=== PATIENT | male | born 2000 | race Caucasian/White ===

== ENCOUNTER 2023-08-14 19:18 | Emergency (ER) | payer BC, SELFPAY ==
--- NOTE | 2023-08-14 19:31 | XR_ITS ---
PROCEDURE INFORMATION: Exam: XR Left Knee Exam date and time: 08/14/2023 7:36 PM Age: 23 years old Clinical indication: Other: Patellar dislocation; Additional info: Patellar dislocation, rule out fracture after fall TECHNIQUE: Imaging protocol: Radiologic exam of the left knee. Views: 3 views. COMPARISON: No relevant prior studies available. FINDINGS: Bones/joints: There is edema along the lateral aspect of the knee. Lipohemarthrosis noted, implying an intra-articular fracture. There may be a nondisplaced fracture along the medial aspect of the patella. Soft tissues: Normal. IMPRESSION: Lipohemarthrosis implies an intra-articular fracture. There may be a nondisplaced fracture along the medial aspect of the patella which could be confirmed with CT. No additional acute bony injury is appreciated.
[2023-08-14 19:32] VITALS: BP 179/101; PULSE 118; RESP 19; TEMP 36.1; O2SAT 97; BMI 17.0
[2023-08-14] MEDS: ACETAMINOPHEN 500MG TAB 1000 MG PO (19:40)
[2023-08-14] MEDS: IBUPROFEN 600 MG TABLET PO (19:41)
--- NOTE | 2023-08-14 19:55 | ED_ITS ---
Discharge Plan Disposition Patient Disposition: Home, Self-Care Prescriptions Prescriptions: No Action No Known Home Medications Referrals Follow up/Referrals: Diego Saavedra DO [Staff Physician] - See instructions Provider,Referral, [Primary Care Provider] - See instructions Activity Restrictions/Add. Instructions Additional Instructions/Restrictions: Take a daily 81 mg aspirin. Take Tylenol 1000 mg every 6 hours (4 times daily) and ibuprofen 400 mg every 6 hours (4 times daily) as needed with food and water to prevent GI upset and kidney damage. Follow-up with Dr. Saavedra regarding this visit to the emergency department (orthopedic doctor). Wear knee immobilizer until that time. Call your family doctor to establish care for this visit to the emergency department and schedule follow-up within 48 hours to ensure improvement. If you have any worsening of your condition or any other concerning signs or symptoms, return to the emergency department or your primary care doctor for further evaluation. Clinical Impressions Clinical Impression: Closed dislocation of left patella Discharge ED Provider: Carlito Hendrix General Adult [facility] General Chief complaint: Extremity Injury, Lower Stated complaint: AO fall 08/13, left knee pain Time Seen by Provider: 08/14/23 19:26 Mode of Arrival: Family Vehicle Source of Information: Patient Limitations: No Limitations Description of Symptoms (Recalled from ER Triage Doc. by RN): 23 yo male presents with CC of left knee injury following a fall. Patient reports he was falling when he attempted to avoid landing on a young child and twisted incorrectly. Reports my patella was on the opposite side it is supposed to be on / minimal swelling present at present History of Present Illness HPI narrative: Please note that above description of symptoms, in this electronic medical record under categorization of recalled from ER triage doctor by RN are reflective of an initial nursing assessment, however, is not reflective of my full history and physical exam that was personally taken and clarified. Consequentially, this preceding description of symptoms, which may include the patient's categorized chief complaint in the EMR, do not reflect my personal clinical impression, and the ultimate description of history of present illness and patient stated complaints should be deferred to this section of the note. Unless stated otherwise or congruent with this section of the note, additional signs, symptoms, or incongruence should be interpreted as inaccurate with my clinical impression. Related Data Home Medications Medication Instructions Recorded Confirmed No Known Home Medications 08/14/23 08/14/23 Allergies Allergy/AdvReac Type Severity Reaction Status Date / Time No Known Allergies Allergy Verified 08/14/23 19:38 [facility] Disclaimer: The information contained in this section may have been updated after the patient was seen, as this information can be updated by other users. Social History Smoking Status: Current every day smoker alcohol intake: never current occupational status: employed Travel in the last 8 weeks: None ROS Obtained: Yes All systems reviewed & no additional complaints except as documented Physical Exam General General appearance: alert and in distress (Pain) Head Head exam: atraumatic and normocephalic Eye Eye exam: Present normal appearance, PERRL and EOMI ENT ENT exam: Present mucous membranes moist Neck Neck exam: Present normal inspection, full ROM and trachea midline Respiratory Respiratory exam: Absent respiratory distress, wheezes, stridor, accessory muscle use or prolonged expiratory phase Cardiovascular Cardiovascular exam: Present normal rhythm Abdominal Exam Abdominal exam: Present soft; Absent distention, tenderness, guarding, rebound or rigidity Extremities Exam Extremities exam: Present other (Mild effusion left knee. Patella glides without issue. Patellar tendons and ligaments within normal limits. Knee structurally intact) Neurological Exam Neurological exam: Present alert, oriented X3, CN II-XII intact and normal gait; Absent motor sensory deficit Skin Skin exam: Present warm and dry; Absent diaphoresis or erythema Medical Decision Making Medical Records Medical records reviewed: Yes I reviewed the patient's medical records. Jarod Inquiry Pt receiving controlled substance: No Jarod was queried for this patient: No Vital Signs: 08/14/23 19:32 08/14/23 20:19 Temperature 97.0 F L 97 F L Temperature Source Temporal Artery Scan Oral Pulse Rate 98 H Pulse Rate [Right Brachial] 118 H Respiratory Rate 19 18 Blood Pressure 179/80 H Blood Pressure [Right Arm] 179/101 H Blood Pressure Mean [Right Arm] 127 Blood Pressure Source Automatic Cuff Blood Pressure Source [Right Arm] Automatic Cuff Blood Pressure Position Sitting Blood Pressure Position [Right Arm] Sitting 02 Sat by Pulse Oximetry 97 Oxygen Delivery Method Room Air Room Air Orders (Tests/Meds): ED MEDICATIONS Discontinued Medications Generic Name Dose Route Start Last Admin Trade Name Freq PRN Reason Stop Dose Admin Acetaminophen 1,000 mg 08/14/23 19:31 08/14/23 19:40 Acetaminophen 500mg Tab PO 08/14/23 19:32 1,000 mg ONCE ONE Administration Ibuprofen 600 mg 08/14/23 19:31 08/14/23 19:41 Ibuprofen 600 Mg Tablet PO 08/14/23 19:32 600 mg ONCE ONE Administration ORDERS Category Date Time Status Knee XR left 3 views [XR knee LT 3V] Stat Exams 08/14/23 19:31 Completed Medical Decision Narrative: 23-year-old male no relevant medical history presenting with left knee pain after fall. Patient states he was avoiding a child after tripping and turned, landed on his knee while twisting and felt a pop. Had immediate pain. Looked down and saw that his patella was on the lateral aspect of his left knee. Forcefully reduced patella, but is still having pain. Presents for further evaluation. It is severe, does not radiate, located directly behind the patella. History was obtained via conversation with patient. On arrival, patient hemodynamically stable, alert, oriented x4, appropriate, GCS 15, moving all extremities spontaneously, pupils equal and reactive to light. Full physical exam performed and significant for patient appears to be in mild distress secondary to pain when moving, at rest, patient does not appear to be in any distress. Knee is structurally intact, neurovascularly intact distally with intact pulses symmetrically. Patient does have flexion and extension of his knee and hip, but limited secondary to pain. differential includes dislocation, reduction, fracture, among others. Patient was given Tylenol, Motrin, ice pack for symptomatic management and correction of underlying abnormalities. Workup independently interpreted and significant for no acute bony abnormality of the knee. He does have a significant effusion, But no obvious fracture. See radiology read for full review of final results. Patient was laced in knee immobilizer, recommended they take daily aspirin and follow-up with orthopedics. He is agreeable to this plan. Because patient at baseline without signs or symptoms of clinical dec ompensation, deemed appropriate for discharge. Results were relayed to patient who voiced understanding and were agreeable to outpatient management and follow up. I discussed my clinical impression with patient and answered all questions. At this time, the evidence for any other entities in the differential is insufficient to warrant any further testing or ED observation. This was explained as well. Advisory was given that persistent or worsening symptoms require further evaluation. I confirmed the understanding of this discussion. Critical Care Critical Care Time Critical Care Time: No
[2023-08-14 20:19] VITALS: BP 179/80; PULSE 98; RESP 18; TEMP 36.1; O2SAT 99
== END 2023-08-14 20:21 | disposition home or self-care (01) ==
PROVIDERS: Emergency Provider Emergency Medicine
DX: S83.005A Unspecified dislocation of left patella, initial encounter (principal); M25.562 Pain in left knee; M25.462 Effusion, left knee; X50.1XXA Overexertion from prolonged static or awkward postures, initial encounter
CPT/HCPCS: 73562; 99283

== ENCOUNTER 2023-08-26 11:04 | Outpatient (RCR) | payer BC, SELFPAY | END 2023-08-26 13:00 | disposition home or self-care (01) | LOC: PT 11:04 | PROVIDERS: Visit Provider Orthopaedic Surgery | DX: M25.562 Pain in left knee (principal); S83.095A Other dislocation of left patella, initial encounter | CPT/HCPCS: 97760 ==

== ENCOUNTER 2023-12-17 17:38 | Emergency (ER) | payer BC, SELFPAY ==
--- NOTE | 2023-12-17 17:54 | XR_ITS ---
PROCEDURE INFORMATION: Exam: XR Left Knee Exam date and time: 12/17/2023 5:55 PM Age: 23 years old Clinical indication: Pain; Knee; Left TECHNIQUE: Imaging protocol: Radiologic exam of the left knee. Views: 3 views. COMPARISON: CR XR KNEE LT 3V 08/14/2023 7:36 PM FINDINGS: Bones/joints: Multiple views were obtained. The osseous structures appear intact with no evidence of acute fracture, dislocation, or malalignment. Joint spaces are preserved. No abnormal bone density or destructive lesions are noted. Soft tissues: Soft tissue swelling is observed, and further clinical correlation is advised. IMPRESSION: At the time of imaging, the skeletal radiograph demonstrates no acute osseous abnormalities but does show soft tissue swelling.
[2023-12-17 18:02] VITALS: BP 129/90; PULSE 103; RESP 16; TEMP 36.9; O2SAT 98; BMI 42.5
--- NOTE | 2023-12-17 18:06 | ED_ITS ---
Discharge Plan Disposition Patient Disposition: Home, Self-Care Condition: Good Prescriptions Prescriptions: New ibuprofen [IBU] 800 mg tablet 800 mg PO Q8HP PRN (Reason: Moderate Pain) Qty: 30 0RF Referrals Follow up/Referrals: Diego Saavedra DO [Staff Physician] - See instructions Provider,Referral, [Primary Care Provider] - See instructions Activity Restrictions/Add. Instructions Additional Instructions/Restrictions: Rest the extremity, apply ice for 15 minutes as tolerated three or four times per day, Elevate the extremity as tolerated while you are resting. Take ibuprofen for pain. I sent in a prescription to your pharmacy. Follow up with Dr. Saavedra (orthopedics). I put in a referral but you need to call his office and schedule an appointment. His office phone number will be on this paperwork. Follow up with your regular doctor. GO TO THE ER FOR ANY WORSENING SYMPTOMS Clinical Impressions Clinical Impression: Left knee sprain Stand Alone Forms Stand Alone Forms: Work/School Release Instructions Patient Instructions: How to Use Crutches, DI for Knee Sprain, How to Use a Knee Immobilizer Print Language Print Language: Korean Discharge ED Provider: Tal Roe [facility] General Stated complaint: AO in August Left knee injury Mode of Arrival: Ambulatory Source of Information: Patient Limitations: No Limitations Time Seen by Provider: 12/17/23 18:06 Description of Symptoms (Recalled from Triage Doc. by RN): Reports possibly dislocating his left knee. States that he was dancing when it popped out of place and he put it back in. HEENT Symptoms (Recalled from RN notes): No Resp Symptoms (Recalled from RN notes): No Skin Symptoms (Recalled from RN notes): No MS Symptoms (Recalled from RN notes): Yes Functional Status (Recalled from RN notes): wnl History of Present Illness Provider Complaint: He states that he dislocated his left knee cap back in august. He states that he put it back in place himself then. He states that 2 days ago he was dancing when he fell and hurt that knee again. Since then he has had left knee swelling and instability. He denies any other injury. Related Data Previous Rx's ?Medication ?Instructions ?Recorded ibuprofen 800 mg tablet (IBU) 800 mg PO Q8HP PRN Moderate Pain 12/17/23 #30 tabs Allergies Allergy/AdvReac Type Severity Reaction Status Date / Time No Known Allergies Allergy Verified 09/09/23 14:01 Worker's Comp Is this a Worker's Comp case?: No PFSH [facility] Disclaimer: The information contained in this section may have been updated after the patient was seen, as this information can be updated by other users. Social History Smoking Status: Current every day smoker alcohol intake: never current occupational status: employed Travel in the last 8 weeks: None ROS Obtained: Yes All systems reviewed & no additional complaints except as documented Constitutional Constitutional: Denies chills and Denies fever(s) Eyes Eyes: Denies eye discharge ENT Ears, Nose, Mouth, and Throat: Denies dizziness, Denies otalgia and Denies sore throat Cardiovascular Cardiovascular: Denies chest pain Respiratory Respiratory: Denies shortness of breath, Denies chest congestion, Denies cough, Denies stridor and Denies wheezing Gastrointestinal Gastrointestingal: Denies nausea or vomiting Musculoskeletal Musculoskeletal: Reports as per HPI Integumentary/Breasts Skin/Breast: Denies rash Neurologic Neurologic: Denies dizziness and Denies paresthesias Allergic/Immunologic Allergic/Immunologic: Denies wheezing Physical Exam General General appearance: alert and in no apparent distress Head Head exam: atraumatic, normocephalic and normal inspection Eye Eye exam: Present normal appearance, PERRL and EOMI ENT ENT exam: Present normal exam, normal oropharynx, mucous membranes moist, TM's normal bilaterally and normal external ear exam Neck Neck exam: Present normal inspection, full ROM and trachea midline; Absent meningismus or lymphadenopathy Chest Chest inspection: Present normal inspection and symmetric chest wall rise; Absent tenderness Respiratory Respiratory exam: Present normal lung sounds bilaterally; Absent respiratory distress Cardiovascular Cardiovascular exam: Present regular rate and normal rhythm; Absent JVD Abdominal Exam Abdominal exam: Present soft and normal bowel sounds; Absent distention, tenderness or guarding Extremities Exam Extremities exam: Present normal capillary refill; Absent calf tenderness Expanded Lower Extremity Exam Left: Hip/Pelvis exam: Present normal inspection and full ROM; Absent tenderness, internal rotation, pain on hip/pelvis palpation or hip pain on leg movement Upper leg exam: Present normal inspection; Absent full ROM, tenderness, swelling, abrasion, laceration, ecchymosis, deformity, crepitus, dislocation or erythema Knee exam: Present full ROM, tenderness, swelling, effusion and knee extension intact; Absent abrasion, laceration, ecchymosis, deformity, crepitus, dislocation, erythema, anterior drawer sign, posterior draw sign, pain with valgus, laxity with valgus, pain with varus or laxity with varus Lower leg exam: Present normal inspection, full ROM and Achilles tendon intact; Absent tenderness or Homans' sign Ankle exam: Present normal inspection and full ROM; Absent tenderness Foot/toe exam: Present normal inspection; Absent full ROM or tenderness Neurovascular/Tendon exam: Present normal capillary refill, normal 2-point discrimination and normal fine/light touch; Absent pulse deficit, motor deficit, sensory deficit, tendon deficit, extremity cold to touch or pallor Gait: observed and limited by pain Back Exam Back exam: Present normal inspection; Absent tenderness Neurological Exam Neurological exam: Present alert and oriented X3 Psychiatric Psychiatric exam: Present normal affect and normal mood Skin Skin exam: Present warm, dry, intact and normal color Lymphatic Lymphatic Findings: no adenopathy Medical Decision Making Medical Records Medical records reviewed: No I reviewed the patient's medical records. Jarod Inquiry Pt receiving controlled substance: No Vital Signs: 12/17/23 18:02 Temperature 98.4 F Temperature Source Oral Pulse Rate [Radial] 103 H Respiratory Rate 16 Blood Pressure [Right Arm] 129/90 Blood Pressure Mean [Right Arm] 103 Blood Pressure Source [Right Arm] Automatic Cuff Blood Pressure Position [Right Arm] Sitting 02 Sat by Pulse Oximetry 98 Oxygen Delivery Method Room Air Orders (Tests/Meds): ORDERS Category Date Time Status Knee XR left 3 views [XR knee LT 3V] Stat Exams 12/17/23 17:54 Ordered Radiology Data #1: Image(s): Knee Image Reviewed: Yes I reviewed the patient's radiology image and Yes I have reviewed radiologist's interpretation Preliminary Findings: No Fracture Seen Accession No. : [id number] Patient Name / ID : VICTORIANO HEATH / [id number] Exam Date : 12/17/2023 17:55:55 ( Final ) Study Comment : Sex / Age : M / 23Y Creator : WILLY FIGUEROA MD Dictator : Assistant Professor Of Biochemistry : Crm Business Analyst : WILLY FIGUEROA MD Approver2 : Report Date : 12/17/2023 18:32:41 My Comment : PROCEDURE INFORMATION: Exam: XR Left Knee Exam date and time: 12/17/2023 5:55 PM Age: 23 years old Clinical indication: Pain; Knee; Left TECHNIQUE: Imaging protocol: Radiologic exam of the left knee. Views: 3 views. COMPARISON: CR XR KNEE LT 3V 08/14/2023 7:36 PM FINDINGS: Bones/joints: Multiple views were obtained. The osseous structures appear intact with no evidence of acute fracture, dislocation, or malalignment. Joint spaces are preserved. No abnormal bone density or destructive lesions are noted. Soft tissues: Soft tissue swelling is observed, and further clinical correlation is advised. IMPRESSION: At the time of imaging, the skeletal radiograph demonstrates no acute osseous abnormalities but does show soft tissue swelling. Medical Decision Narrative: He is using the knee immobilizer and crutches that he already has.
[2023-12-17 19:12] VITALS: BP 129/90; PULSE 103; RESP 16; TEMP 36.9; O2SAT 98
== END 2023-12-17 19:13 | disposition home or self-care (01) ==
PROVIDERS: Emergency Provider Nurse Practitioner Family
DX: S83.92XA Sprain of unspecified site of left knee, initial encounter (principal); M25.562 Pain in left knee; Y93.41 Activity, dancing
CPT/HCPCS: 73562; 99204; 99212; G0463